=== PATIENT | female | born 1975 | race Caucasian/White ===

== ENCOUNTER → 2024-02-11 06:45 | Outpatient (REF) | payer OTHER, SELFPAY | LOC: HWWDC 06:45 | PROVIDERS: ATTENDING PHYSICIAN Nurse Practitioner Family | DX: Z12.31 Encounter for screening mammogram for malignant neoplasm of breast (principal) | CPT/HCPCS: 77063; 77067 ==

== ENCOUNTER 2024-02-17 12:28 | Emergency (ER) | payer OTHER, SELFPAY ==
[2024-02-17 12:32] VITALS: BP 115/83
[2024-02-17 12:46] LABS: % Basophils 0.5 % (0-2); % Eosinophils 2.9 % (0-6); % Immature Granulocytes 0.2 % (0-0.5); % Lymphocytes 39.8 % (20.5-51.1); % Monocytes 10.7 % (1.7-9.3); % Neutrophils 45.9 % (42.2-75.2); Absolute Eosinophils 0.1 10^3/uL (0-0.7); Absolute Lymphocytes 1.7 10^3/uL (1.2-3.4); Absolute Monocytes 0.5 10^3/uL (0.1-0.6); Absolute Neutrophils 1.9 10^3/uL (1.4-6.5); Hematocrit 34.8 % (37.0-47.0); Hemoglobin 12.2 g/dL (12.0-16.0); Mean Corp Hgb Conc. 35.1 g/dL (33.0-37.0); Mean Corpuscular Hgb 31.1 pg (27.0-31.0); Mean Corpuscular Volume 88.8 fL (81.0-99.0); Mean Platelet Volume 11.2 fL (7.4-10.4); Nucleated Red Blood Cells % 0 %; Platelet Count 222 10^3/uL (130-400); Red Blood Cell Count 3.92 10^6/uL (4.20-5.40); Red Cell Dist. Width 12.9 % (11.5-14.5); White Blood Cell Count 4.2 10^3/uL (4.8-10.8)
[2024-02-17 13:06] LABS: HCG, Serum Qualitative Screen Negative
[2024-02-17 13:09] LABS: ALT (SGPT) 20 U/L (0-35); AST (SGOT) 22 U/L (14-36); Albumin 4.2 g/dl (3.5-5.0); Alkaline Phosphatase 41 U/L (38-126); Blood Urea Nitrogen 11 mg/dl (7-17); Calcium 8.9 mg/dl (8.4-10.2); Carbon Dioxide 23 mmol/L (22-30); Chloride 104 mmol/L (98-107); Glucose 90 mg/dl (70-99); Potassium 4.3 mmol/L (3.5-5.1); Sodium 138 mmol/L (135-145); Total Bilirubin 0.5 mg/dl (0.2-1.3); Total Protein 6.8 g/dl (6.3-8.2); eGFR > 60.00
[2024-02-17 17:19] VITALS: BP 120/81
--- NOTE | 2024-02-17 19:46 | ED.GENMED ---
History of Present Illness
General
Chief Complaint: Gynecological Problem
Source: patient
Exam Limitations: none
Time Seen by Provider: 02/17/24 16:09
Nursing documentation reviewed up to this point in time: agreed with
History of Present Illness
History of Present Illness:
48-year-old female with past medical history of uterine polyps presenting to the emergency department today with concerns of vaginal bleeding over the past 9 days sent in by diesel service journeyman concerning she has had heavy bleeding. Denies any chest pain
shortness of breath has noted some clots today went through 4-5 pads throughout the day today. She claims that she recently started testosterone for menopausal symptoms 2 weeks ago through a [facility].
Past History
Past History
ED Past Medical History: None
Social History
Tobacco: Non-smoker
Personal:
Living: with family
Employment: Employed
Review of Systems
Review of Systems
Allergies reviewed?: Yes
All Other Systems: ROS reviewed and negative except as documented in HPI and ROS
Phy Exam
Physical Exam
Physical Exam:
GENERAL: Alert , in no apparent distress
EYE: pupils equal and reactive
NECK: Supple, no significant adenopathy.
ENT: o/p clr, mmm.
CARDIAC: Regular rate and rhythm .
LUNGS: Clear breath sounds bilaterally, no acute respiratory distress, no wheezes/rales/rhonchi
ABDOMEN: Vaginal exam without significant blood no hemorrhagic bleeding no abnormalities to the pelvic exam. No tenderness abdomen soft, without focal tenderness, no r/g, no cvat
NEUROLOGICAL: Alert and oriented, no focal neuro deficits
SKIN: Warm and dry, skin intact.
MUSCULOSKELETAL: No edema, well perfused.
PSYCH: Normal and appropriate interaction.
Course
Orders/Labs/Results
Orders:
Orders
02/17/24 12:34
Test Result ONCE
02/17/24 12:38
Complete Blood Count/With Diff Urgent
Comprehensive Metabolic Panel Urgent
HCG, Serum Qualitative Screen Urgent
02/17/24 16:31
US Pelvis W Transvag Combined Urgent
Reason For Exam: bleeding vaginal
Abnormal Lab Results
02/17/24
12:38
WBC 4.2 L 10^3/uL
(4.8-10.8)
RBC 3.92 L 10^6/uL
(4.20-5.40)
Hct 34.8 L %
(37.0-47.0)
MCH 31.1 H pg
(27.0-31.0)
MPV 11.2 H fL
(7.4-10.4)
Monocytes % 10.7 H %
(1.7-9.3)
02/17/24 12:38
02/17/24 12:38
Vital Signs
Initial and Last Documented VS:
Initial Vital Signs
Temp Pulse Resp BP Pulse Ox
97.8 F 84 16 115/83 100
02/17/24 12:32 02/17/24 12:32 02/17/24 12:32 02/17/24 12:32 02/17/24 12:32
Last Documented Vital Signs
Temp Pulse Resp BP Pulse Ox
97.8 F 70 18 120/81 100
02/17/24 12:32 02/17/24 17:19 02/17/24 17:19 02/17/24 17:19 02/17/24 17:19
MDM/Problems Addressed
MDM/Problems Addressed:
40-year-old female presenting to the emergency department with concerns of vaginal bleeding. Over the past 9 days longer than usual. Afebrile no tenderness to palpation does clean up some intermittent discomfort. Ultrasound performed that showed
heterogeneous uterus as well as ovarian cyst but no emergent findings no signs of torsion patient's diesel service journeyman was contacted and will have her follow-up closely. Return precautions given.
*Critical Care Note
Total Time (30-74mins, 75-104mins- exclusive of procedures): Not Applicable
ED Attending Note
-
Portions of this chart may have been created with voice recognition software.� Occasional wrong word or��sound alike� substitutions may have occurred due to the inherent limitations of voice recognition software.
Discharge Plan
Departure
Patient Disposition: Home (Routine Discharge)
Date of Disposition: 02/17/24
Time of Disposition: 19:46
Patient with high blood pressure during this ER visit?: No
Condition: Good
Covid-19: Not Applicable
Discharge Problem:
Abnormal vaginal bleeding
Instructions: Heavy Periods (DC)
Prescriptions:
No Action
escitalopram oxalate [Lexapro] 20 mg Tablet
20 mg PO HS
Referrals:
Zeb Larry MD [Active] - Follow up in 5-7 days
Hayden Mcmullen MD [Family Provider] -
Activity Restrictions/Additional Instructions:
You came to the emergency department today with concerns of abnormal vaginal bleeding. Here you had a reassuring assessment. You did have an ultrasound that showed some cysts. Please follow closely with your diesel service journeyman. Return to the emergency
department for any worsening, new or concerning symptoms.
Interventions
Interventions:
*Risk Screen - Suicide Last Done: 02/17/24 12:32
*General Assessment Last Done: 02/17/24 18:45
*Neglect/Abuse Screening Last Done: 02/17/24 12:32
ED- Fall Risk Assessment Last Done: 02/17/24 18:45
*ED COVID-19 Vaccine History Last Done: 02/17/24 18:45
*Nursing Disposition Last Done: 02/17/24 19:55
ED-Female Genitourinary Assessment Last Done: 02/17/24 18:45
Discharge Date and Time
Discharge Date/Time: 02/17/24 19:55
Print Language: PASHTO
== END 2024-02-17 19:55 | disposition home or self-care (01) ==
LOC: EMR 12:28
PROVIDERS: Emergency Medicine; EMERGENCY PHYSICIAN Emergency Medicine; FAMILY PHYSICIAN Family Medicine
DX: N93.9 Abnormal uterine and vaginal bleeding, unspecified (principal)
CPT/HCPCS: 99284; 76830; 76856; 80053; 84703; 85025

== ENCOUNTER → 2024-10-14 07:59 | Outpatient (REF) | payer OTHER, SELFPAY | LOC: HWRAD 07:59 | PROVIDERS: ATTENDING PHYSICIAN Obstetrics & Gynecology; FAMILY PHYSICIAN Nurse Practitioner Family | DX: N92.6 Irregular menstruation, unspecified (principal) | CPT/HCPCS: 76830; 76856 ==